=== PATIENT | female | born 2000 | race African-American/Black ===

== ENCOUNTER 2021-04-21 01:52 | Emergency (ER) | payer OTHER ==
[2021-04-21] MEDS ORDERED: CLINDAMYCIN 600MG PREMIX IVPB 600 MG/50 ML BAG IVPB ONE ×2 (02:14→02:30)
[2021-04-21] MEDS ORDERED: SODIUM CHLORIDE 0.9% 500 ML INFUS.BAG IV ONE (02:14)
[2021-04-21] MEDS ORDERED: DEXAMETHASONE SOD PHOSPHATE 10 MG/1 ML VIAL IVPUSH ONE (02:14)
[2021-04-21] MEDS ORDERED: DEXAMETHASONE SOD PHOSPHATE 10 MG/1 ML VIAL ONE (02:29)
[2021-04-21 02:30] LABS: BASO % 0.2 % (0-2.0); EOS % 0.4 % (0-4.5); HEMATOCRIT 35.1 % (32.4-45.2); HEMOGLOBIN 11.3 GM/dL (10.7-15.3); LYMPH % 9.1 % (8-40); MCH 26.2 pg (25.7-33.7); MCHC 32.2 g/dl (32.0-36.0); MEAN CELL VOLUME 81.1 fl (80-96); MEAN PLT VOLUME 7.5 fl (7.5-11.1); NEUT % 76.3 % (42.8-82.8); PLATELET COUNT 364 10^3/uL (134-434); RBC 4.33 M/mm3 (3.60-5.2); WHITE BLOOD COUNT 19.3 K/mm3 (4.0-10.0)
[2021-04-21 02:33] VITALS: BMI 29.8
[2021-04-21] MEDS ORDERED: KETOROLAC TROMETHAMINE 15 MG/ML VIAL IVPUSH ONE (02:35)
[2021-04-21 02:42] LABS: CALCIUM 9.3 mg/dL (8.5-10.1)
[2021-04-21 02:43] LABS: ALBUMIN 3.8 g/dl (3.4-5.0); BLOOD UREA NITROGEN 13.3 mg/dL (7-18)
[2021-04-21 02:46] LABS: CREATININE 0.8 mg/dL (0.55-1.3)
[2021-04-21 02:47] LABS: BILIRUBIN,TOTAL 0.7 mg/dL (0.2-1)
[2021-04-21 02:48] LABS: TOT PROT 8.3 g/dl (6.4-8.2)
[2021-04-21] MEDS ORDERED: KETOROLAC TROMETHAMINE 15 MG/ML VIAL ONE (03:48)
[2021-04-21 04:42] LABS: THROAT:GRP A STREP DETECTED (NOTDETECTED)
[2021-04-21 08:14] VITALS: BP 148/88; PULSE 110; TEMP 98.9
[2021-04-22 11:10] LABS: SARS-CoV-2 NAA Not Detected (Not Detected)
== END 2021-04-21 08:15 | disposition short-term general hospital (02) ==
LOC: JER 01:52
PROC: 3E03329 Introduction of Other Anti-infective into Peripheral Vein, Percutaneous Approach (ICD-10-PCS; principal; 2021-04-21)
PROC: 3E033GC Introduction of Other Therapeutic Substance into Peripheral Vein, Percutaneous Approach (ICD-10-PCS; 2021-04-21)
PROC: 3E0333Z Introduction of Anti-inflammatory into Peripheral Vein, Percutaneous Approach (ICD-10-PCS; 2021-04-21)
DX: J36 Peritonsillar abscess (principal); J02.0 Streptococcal pharyngitis
CPT/HCPCS: 36415; 70491-TC; 80053; 84703; 85025; 87651; 99285-25; C9803-CS; J1100; U0003; U0005

== ENCOUNTER 2023-12-17 13:39 | Emergency (ER) | payer OTHER ==
[2023-12-17 13:46] VITALS: RESP 18; BMI 28.3
[2023-12-17 14:54] LABS: HCG,QUALITATIVE URINE Positive
[2023-12-17 14:57] LABS: BASO % 0.5 % (0-2.0); EOS % 0.3 % (0-4.5); EPI CELLS >36 /uL (0-25.1); HEMATOCRIT 33.1 % (32.4-45.2); HEMOGLOBIN 10.7 GM/dL (10.7-15.3); HYALINE CASTS 1 /uL (0-3.1); LYMPH % 23.2 % (8-40); MCH 27.2 pg (25.7-33.7); MCHC 32.4 g/dl (32.0-36.0); MEAN CELL VOLUME 84.1 fl (80-96); MEAN PLT VOLUME 8.5 fl (7.5-11.1); MONO % 12.1 % (3.8-10.2); NEUT % 63.9 % (42.8-82.8); PLATELET COUNT 338 10^3/uL (134-434); RBC 3.94 M/mm3 (3.60-5.2); RDW 15.1 % (11.6-15.6); URINE APPEARANCE CLEAR; URINE BACTERIA 492 /uL (0-1359); URINE BILIRUBIN NEGATIVE (NEGATIVE); URINE COLOR DK YELLOW; URINE GLUCOSE (UA) NEGATIVE (NEGATIVE); URINE KETONE TRACE (NEGATIVE); URINE LEUK ESTERASE NEGATIVE (NEGATIVE); URINE NITRITE NEGATIVE (NEGATIVE); URINE PROTEIN 1+ (NEGATIVE); URINE RBC 1273 /uL (0-23.9); URINE WBC 14 /uL (0-25.8); WHITE BLOOD COUNT 9.6 K/mm3 (4.0-10.0)
[2023-12-17 15:13] LABS: POTASSIUM 3.6 mmol/L (3.5-5.1)
[2023-12-17 15:15] LABS: ALBUMIN 4.4 g/dl (3.4-5.0); CALCIUM 9.2 mg/dL (8.5-10.1)
[2023-12-17 15:16] LABS: BLOOD UREA NITROGEN 7.5 mg/dL (7-18); MAGNESIUM 1.8 mg/dL (1.8-2.4)
[2023-12-17 15:19] LABS: CREATININE 0.8 mg/dL (0.55-1.3)
[2023-12-17 15:20] LABS: BILIRUBIN,TOTAL 0.7 mg/dL (0.2-1); TOT PROT 8.1 g/dl (6.4-8.2)
[2023-12-17 16:44] VITALS: BP 128/84; PULSE 68; TEMP 98.5
== END 2023-12-17 19:02 | disposition home or self-care (01) ==
LOC: JER 13:39
DX: O26.899 Other specified pregnancy related conditions, unspecified trimester (principal); R10.31 Right lower quadrant pain; Z3A.00 Weeks of gestation of pregnancy not specified
CPT/HCPCS: 36415; 76830-TC; 80053; 81003; 83735; 84702; 84703; 85025; 87086; 87491; 87591; 87661; 99284-25

== ENCOUNTER 2023-12-19 13:08 | Day surgery (SDC) | payer OTHER ==
[2023-12-19 13:16] VITALS: BMI 28.3
[2023-12-19 13:48] LABS: BASO % 0.4 % (0-2.0); EOS % 1.4 % (0-4.5); HEMATOCRIT 31.1 % (32.4-45.2); HEMOGLOBIN 10.1 GM/dL (10.7-15.3); LYMPH % 34.5 % (8-40); MCH 26.9 pg (25.7-33.7); MCHC 32.4 g/dl (32.0-36.0); MEAN CELL VOLUME 83.2 fl (80-96); MEAN PLT VOLUME 7.7 fl (7.5-11.1); NEUT % 49.7 % (42.8-82.8); PLATELET COUNT 312 10^3/uL (134-434); RBC 3.74 M/mm3 (3.60-5.2); RDW 14.9 % (11.6-15.6); WHITE BLOOD COUNT 6.6 K/mm3 (4.0-10.0)
[2023-12-19 13:56] LABS: INR 1.02 (0.83-1.09); PROTHROMBIN TIME (PATIENT) 11.7 SEC (9.7-13.0)
[2023-12-19 13:59] LABS: ACTIVATED PTT 32.5 SECONDS (25.2-36.5)
[2023-12-19 14:17] LABS: BLOOD UREA NITROGEN 11.3 mg/dL (7-18); CALCIUM 9.3 mg/dL (8.5-10.1)
[2023-12-19 14:20] LABS: CREATININE 0.7 mg/dL (0.55-1.3)
[2023-12-19 14:22] LABS: BILIRUBIN,TOTAL 0.6 mg/dL (0.2-1); TOT PROT 7.6 g/dl (6.4-8.2)
[2023-12-19] MEDS ORDERED: DIPHTH,PERTUSS(ACELL),TET 0.5 ML DISP.SYRIN IM ONE (17:29)
[2023-12-19] MEDS: DIPHTH,PERTUSS(ACELL),TET 0.5 ML DISP.SYRIN IM ONE (17:33)
[2023-12-19] MEDS ORDERED: SUCCINYLCHOLINE CHLORIDE 200 MG/10 ML SYRINGE ONE (17:53)
[2023-12-19] MEDS ORDERED: PROPOFOL 20 ML ONE (17:53)
[2023-12-19] MEDS ORDERED: MIDAZOLAM HCL 2 MG/2 ML SINGLE DOSE VIAL ONE ×2 (17:54→18:38)
[2023-12-19] MEDS: LIDOCAINE HCL 1%, 10 MG/ML (20ML VIAL) NR ONE (17:54)
[2023-12-19] MEDS ORDERED: BUPIVACAINE HCL/PF 0.5% (5MG/ML) 10 ML VIAL ONE (18:14)
[2023-12-19] MEDS ORDERED: ROCURONIUM BROMIDE 50 MG/5 ML SYRINGE ONE (18:53)
[2023-12-19 18:56] LABS: HEMATOCRIT 29.9 % (32.4-45.2); HEMOGLOBIN 9.8 GM/dL (10.7-15.3); MCH 27.2 pg (25.7-33.7); MCHC 32.9 g/dl (32.0-36.0); MEAN CELL VOLUME 82.7 fl (80-96); MEAN PLT VOLUME 8.1 fl (7.5-11.1); PLATELET COUNT 299 10^3/uL (134-434); RBC 3.61 M/mm3 (3.60-5.2); RDW 15.1 % (11.6-15.6); WHITE BLOOD COUNT 7.1 K/mm3 (4.0-10.0)
[2023-12-19] MEDS ORDERED: ONDANSETRON 4 MG/2 ML VIAL ONE ×3 (19:36→20:36)
[2023-12-19] MEDS ORDERED: DEXAMETHASONE SOD PHOSPHATE 4 MG/1 ML VIAL ONE ×2 (19:36→20:33)
[2023-12-19] MEDS ORDERED: GLYCOPYRROLATE 0.2 MG/1 ML VIAL ONE (20:33)
[2023-12-19] MEDS ORDERED: NEOSTIGMINE METHYLSULFATE 0.5 MG/1 ML - 10 ML MDV ONE (20:33)
[2023-12-19] MEDS ORDERED: ceFAZolin SODIUM 1 GM VIAL ONE ×2 (21:02→21:47)
[2023-12-19] MEDS ORDERED: ALBUTEROL SO4 0.083% IH SOL 2.5 MG/3 ML VIAL.NEB. NEB ONE (21:13)
[2023-12-19] MEDS ORDERED: LACTATED RINGERS SOLUTION 1,000 ML IV SCH (21:30)
[2023-12-19] MEDS ORDERED: ONDANSETRON 4 MG/2 ML VIAL IVPUSH PRN (21:30)
[2023-12-19] MEDS: ALBUTEROL SO4 0.083% IH SOL 2.5 MG/3 ML VIAL.NEB. NEB ONE (21:34)
[2023-12-19] MEDS ORDERED: ACETAMINOPHEN 1000 MG/100 ML BAG IVPB PRN (21:52)
[2023-12-19] MEDS: CEFAZOLIN 1 GM in DEXTROSE 5%-WATER - 50 ML IVPB ONE (21:53)
[2023-12-19] MEDS ORDERED: IBUPROFEN 600 MG TABLET (FP) PO PRN ×2 (21:53→22:02)
[2023-12-20] MEDS: IBUPROFEN 800 MG/8 ML IJ IVPB ONE (00:44)
[2023-12-20] MEDS: LACTATED RINGERS SOLUTION 1,000 ML IV SCH (00:45)
[2023-12-20 02:44] VITALS: RESP 18
[2023-12-20 05:57] VITALS: TEMP 98.5
[2023-12-20 09:13] VITALS: BP 128/62; PULSE 94
[2023-12-20 09:54] LABS: BASO % 0.1 % (0-2.0); HEMATOCRIT 26.9 % (32.4-45.2); HEMOGLOBIN 8.8 GM/dL (10.7-15.3); LYMPH % 14.5 % (8-40); MCH 27.1 pg (25.7-33.7); MCHC 32.7 g/dl (32.0-36.0); MEAN PLT VOLUME 8.2 fl (7.5-11.1); MONO % 12.7 % (3.8-10.2); NEUT % 72.7 % (42.8-82.8); PLATELET COUNT 265 10^3/uL (134-434); RBC 3.24 M/mm3 (3.60-5.2); RDW 14.8 % (11.6-15.6)
== END 2023-12-20 11:20 | disposition home or self-care (01) ==
LOC: JERFT 13:08 → JER 13:08 → UNDOADMIN 17:28 → JERBED 17:28 → JASUSAT 21:51 → J3W 23:28 → JASUSAT 12-20 11:20
PROVIDERS: ATTEND Obstetrics & Gynecology Obstetrics
PROC: 0UT54ZZ Resection of Right Fallopian Tube, Percutaneous Endoscopic Approach (ICD-10-PCS; 2023-12-19)
PROC: 10T24ZZ Resection of Products of Conception, Ectopic, Percutaneous Endoscopic Approach (ICD-10-PCS; principal; 2023-12-19 17:41)
DX: O00.101 Right tubal pregnancy without intrauterine pregnancy (principal)
CPT/HCPCS: 36415; 76817-TC; 80053; 84702; 85025; 85027; 85610; 85730; 86850; 86900; 86901; 88305-TC; 90715; 94640; 94760; 99285-25